=== PATIENT | female | born 1995 | race Caucasian/White ===

== ENCOUNTER 2017-01-28 17:22 | Emergency (ER) | payer BC ==
[2017-01-28 17:28] VITALS: TEMP 98.1
--- NOTE | 2017-01-28 17:33 | EDPHY ---
H & P Stated Complaint: nontraumatic pain/swelling behind l knee Time Seen by Provider: 01/28/17 17:29 - Personal History LMP (Females 10-55): Extended Cycle BCP/Inj Current Tetanus/Diphtheria Vaccine: Yes - Medical/Surgical History Hx Asthma: No Hx Chronic Respiratory Disease: No Hx Diabetes: No Hx Cardiac Disease: No Hx Renal Disease: No Hx Cirrhosis: No Hx Alcoholism: No Hx HIV/AIDS: No Hx Splenectomy or Spleen Trauma: No Other PMH: add/anxiety. scoliosis - Social History Smoking Status: Never smoked Constitutional: Initial Vital Signs Temperature (C) 36.7 C 01/28/17 17:25 Heart Rate 116 H 01/28/17 17:25 Respiratory Rate 20 01/28/17 17:25 Blood Pressure 123/82 H 01/28/17 17:25 O2 Sat (%) 97 01/28/17 17:25 O2 Delivery Mode Room Air Allergies/Adverse Reactions: amoxicillin Allergy (Verified 01/28/17 17:24) Home Medications: Medication Instructions Recorded Adderall Xr 20 mg Capsule 06/13/15 Jolessa 0.15 mg-0.03 mg Tablet 06/13/15 Hydroxyzine HCl 01/28/17 Medical Decision Making - Diagnostics Imaging Results: Imaging Impressions Extremity Venous Study 01/28/17 18:01 Impression: No sonographic evidence of deep vein thrombosis in the left lower extremity. Dr. Ramirez discussed these findings by telephone with Sandip Heath MD on 01/28/2017 at 20:29 hours. Imaging: Discussed imaging studies w/ call center professional Radiologist ED Course/Re-evaluation: CHIEF COMPLAINT: "The back of my knee is swollen" HISTORY OF PRESENT ILLNESS: The patient is a 20 y/o female complaining of mild pain and swelling along the back of her left knee onset today. Her mother has a history of blood clots and was concerned her daughter might also have a DVT and sent her to the ED. The patient has no personal history of blood clots. She cannot identify any obvious precipitating factors for her pain and swelling. She denies recent trauma or periods of long travel. No associated chest pain, dyspnea, fever, or other complaints. REVIEW OF SYSTEMS: A 10 point review of systems was performed and is negative with the exception of the elements mentioned in the history of present illness. PHYSICAL EXAM: HR, BP, O2 Sat, RR. Temp noted General Appearance: Alert, well hydrated, appropriate, and non-toxic appearing. Head: Atraumatic without scalp tenderness or obvious injury Eyes: Pupils equal, round, reactive to light and accommodation, EOMI, no trauma , no injection. Nose: Atraumatic, no rhinorrhea, clear. Throat: Mucus membranes moist. Neck: Supple Respiratory: No retractions, no distress, no wheezes, and no accessory muscle use. Lungs are clear to auscultation bilaterally. Cardiovascular: Regular rate and rhythm, no murmurs, rubs, or gallops. Intact left dorsalis pedis and posterior tibial pulses. Good capillary refill all extremities. Gastrointestinal: Abdomen is soft, nontender, non-distended, no masses, no rebound, no guarding, no peritoneal signs. Musculoskeletal: Normal active ROM of all extremities, atraumatic. Neurological: Alert, appropriate, and interactive. The patient has non-focal cranial nerves, motor, sensory, and cerebellar exam. Skin: No rashes, good turgor, no nodules on palpation. Past medical history: Anxiety Past surgical history: Denies Family history: Mother has DVTs Social history: From [employer]. DIAGNOSTICS/PROCEDURES/CRITICAL CARE TIME: Left leg US: negative for DVT DIFFERENTIAL DIAGNOSIS: The differential diagnosis for the patient's leg swelling included but was not limited to hypoalbuminemia, congestive heart failure, cor pulmonale, venous stasis, trauma, and DVT. MEDICAL DECISION MAKING: This is a healthy 21 y/o female who presents at the recommendation of her mother to rule out a DVT in her left knee after she developed swelling and pain on the posterior aspect today. Apart from her mother's history of blood clots, she has no risk factors for blood clots. She is neurovascularly intact. No appreciable swelling or tenderness noted. Plan for left leg ultrasound to rule out DVT. US is normal. Reassessed patient and discussed findings. Recommended standard musculoskeletal pain care and follow up. She is comfortable with this plan. Return precautions discussed. Departure - Departure Disposition: Home, Routine, Self-Care Clinical Impression: Leg pain Qualifiers: Laterality: left Qualified Code(s): M79.605 - Pain in left leg Condition: Good Instructions: Leg Pain (ED) Additional Instructions: Take ibuprofen or Tylenol as directed on the packaging as needed for pain over the next few days. Return to the ED for chest pain, shortness of breath, or other worsening of condition. Referrals: LAWANDA SIM [Other] - As per Instructions Report Scribed for: Sandip Heath Report Scribed by: Leigh Garcia Date of Report: 01/28/17 Time of Report: 17:46
[2017-01-28 20:14] VITALS: BP 118/69; PULSE 70; RESP 16; O2SAT 96
== END 2017-01-28 20:40 | disposition home or self-care (01) ==
DX: M79.605 Pain in left leg (principal)